=== PATIENT | female | born 1935 | race Caucasian/White ===

== ENCOUNTER 2016-12-27 18:42 | Emergency (ER) | payer MEDICAID, OTHER ==
[~2016-12-27] VITALS: Ht 152.4 cm; Wt 50.0 kg
[~2016-12-27 18:42] MED LIST: ATEN-51 PO; ATEN100T PO; ENAL20TA PO; MECL25TA2 PO; NIFE30TA43 PO; ONDA4TAB35 PO; TRAM50TA2 PO
[2016-12-27 19:38] VITALS: Ht 152.4 cm; Wt 50.0 kg
[2016-12-27] MEDS ORDERED: NICARDipine HCL 30 MG CAPSULE PO ONE (22:00)
--- NOTE | 2016-12-27 22:23 | RADRPT ---
PROCEDURE: XR Chest. CLINICAL INDICATION: Chest pain. TECHNIQUE: Single frontal view. COMPARISON: None. FINDINGS: The lungs are clear. The heart size is normal. There is calcification in the aorta consistent with atherosclerosis. There is no pleural effusion. There is no pneumothorax. IMPRESSION: 1. Atherosclerosis. 2. Otherwise normal chest x-ray. RPTAT: QQ .Malcolm Hernández MD, MD Date Time Electronically viewed and signed by .Malcolm Hernández MD, on 12/27/2016 22:22 .R/
--- NOTE | 2016-12-27 22:44 | RADRPT ---
PROCEDURE: CT Brain without contrast. CLINICAL INDICATION: Headache. TECHNIQUE: A CT of the brain without contrast was performed utilizing axial sections from the skul l base through the vertex. The patient was scanned without intravenous contrast enhancement. Sagitta l and coronal reformatted images were obtained using the data from the axial images. Total exam DLP is 720.23 mGy-cm. CTDIvol is 43.58 mGy. One or more of the following dose reduction techniques we re used: Automated exposure control, adjustment of the mA and/or kV according to patient size, use o f iterative reconstruction technique. COMPARISON: None available FINDINGS: There is normal ochoa-white matter differentiation. There is mild enlargement of the ventricles and subarachnoid spaces consistent with atrophy. Vascul ar calcifications are present consistent with atherosclerosis. There is no intracranial hemorrhage or space-occupying lesion. There is no skull fracture or lytic lesion. IMPRESSION: 1. Normal noncontrast CT scan of the brain. 2. No intracranial hemorrhage. 3. Mild atherosclerosis and atrophy. 4. No change from 06/04/2015. RPTAT: QQ .Malcolm Hernández MD, MD Date Time Electronically viewed and signed by .Malcolm Hernández MD, on 12/27/2016 22:43 .R/
[2016-12-27 23:01] LABS: BASOPHILS % 0.6 % (0.0-2.0); EOSINOPHILS # 0.1 10^3/ul (0.0-0.5); EOSINOPHILS % 1.2 % (0.0-7.0); HEMATOCRIT 39.3 % (37.0-47.0); HEMOGLOBIN 12.9 g/dl (12.0-16.0); LYMPHOCYTES # 3.3 10^3/ul (0.8-2.9); LYMPHOCYTES % 48.1 % (15.0-51.0); MEAN CORPUSCULAR HEMOGLOBIN 30.1 pg (29.0-33.0); MEAN CORPUSCULAR HGB CONC 32.8 g/dl (32.0-37.0); MEAN CORPUSCULAR VOLUME 91.8 fl (82.0-101.0); MEAN PLATELET VOLUME 10.3 fl (7.4-10.4); MONOCYTE # 0.5 10^3/ul (0.3-0.9); MONOCYTES % 7.8 % (0.0-11.0); NEUTROPHILS % 42.2 % (39.0-77.0); PLATELET COUNT 220 10^3/UL (140-415); RED BLOOD COUNT 4.28 10^6/ul (4.20-5.40); RED CELL DISTRIBUTION WIDTH 13.6 % (11.5-14.5); WHITE BLOOD COUNT 6.8 10^3/ul (4.8-10.8)
[2016-12-27 23:18] LABS: ANION GAP 21 (8-16); BLOOD UREA NITROGEN 11 mg/dl (7-20); CALCIUM 9.2 mg/dl (8.4-10.2); CARBON DIOXIDE 26 mmol/L (21-31); CHLORIDE 97 mmol/L (97-110); CREATININE 0.55 mg/dl (0.44-1.00); GLUCOSE 93 mg/dl (70-220); SODIUM 140 mmol/L (135-144)
[2016-12-27 23:34] LABS: TROPONIN-I < 0.012 ng/ml (0.00-0.12)
[2016-12-27 23:55] LABS: ADD UMIC YES; UR ASCORBIC ACID NEGATIVE (NEGATIVE); UR BILIRUBIN (Dip) NEGATIVE (NEGATIVE); UR BLOOD (Dip) 1+ mg/dL (NEGATIVE); UR CLARITY CLEAR (CLEAR); UR COLOR STRAW (YELLOW); UR GLUCOSE (Dip) NEGATIVE (NEGATIVE); UR KETONES (Dip) NEGATIVE (NEGATIVE); UR LEUKOCYTE ESTERASE (Dip) TRACE Leu/ul (NEGATIVE); UR NITRITE (Dip) NEGATIVE (NEGATIVE); UR RBC 1 /HPF (0-5); UR SPECIFIC GRAVITY (Dip) 1.004 (1.003-1.030); UR TOTAL PROTEIN (Dip) NEGATIVE (NEGATIVE); UR UROBILINOGEN (Dip) NEGATIVE (NEGATIVE)
[2016-12-28 00:06] VITALS: BP 116/69; PULSE 72; RESP 14; TEMP 98.7
--- NOTE | 2016-12-28 00:09 | ERD ---
ER Documentation Chief Complaint Date/Time DATE: 12/28/16 TIME: 00:06 Chief Complaint HTN, HEADACHE, CP X 1 MONTH HPI 81-year-old Indonesian-speaking female. A family law mediator was used. The patient is a somewhat limited historian however she describes approximately 1 month ago having chest pain. She did not seek care. This was transient substernal and occasionally left-sided. This was nonexertional. She has not had pain since. She also noted that her blood pressure is been elevated today with a mild headache that is frontal, gradual onset and throbbing. She states compliance with her medication regimen. She denies any fevers or chills, no recent chest pain or exertional symptoms, no pleuritic pain. No slurred speech or motor weakness. ROS All systems reviewed and are negative except as per history of present illness. Medications Home Meds Active Scripts Atenolol* (Atenolol*) 100 Mg Tablet, 100 MG PO DAILY, #30 TAB One quarter tablet every 12 hours Prov:OLEG RODRIGUEZ DO 06/04/15 Nifedipine* (Adalat CC*) 30 Mg Tablet.sa, 30 MG PO DAILY, #30 TAB.SA Prov:OLEG RODRIGUEZ DO 06/04/15 Enalapril Maleate* (Enalapril Maleate*) 20 Mg Tablet, 20 MG PO DAILY, #30 TAB Prov:OLEG RODRIGUEZ. DO 06/04/15 Tramadol HCl (Tramadol HCl) 50 Mg Tablet, 50 MG PO Q4 Y for PAIN, #20 TAB Prov:OLEG RODRIGUEZ DO 06/04/15 Ondansetron Hcl* (Zofran* ODT) 4 mg -ODT Tab.disper, 4 MG PO Q6 Y for NAUSEA AND /OR VOMITING, #10 TAB Prov:OLEG RODRIGUEZ DO 06/04/15 Meclizine Hcl* (Antivert*) 25 Mg Tablet, 25 MG PO Q6H Y for dizzy, #20 TAB Prov:OLEG RODRIGUEZ DO 06/04/15 Reported Medications Atenolol* (Atenolol*) 25 Mg Tablet, 25 MG PO DAILY, #30 TAB 06/04/15 Enalapril Maleate* (Enalapril Maleate*) 20 Mg Tablet, 20 MG PO DAILY, TAB 06/04/15 Nifedipine* (Adalat CC*) 30 Mg Tablet.sa, 30 MG PO DAILY, #30 TAB.SA 06/04/15 Allergies Allergies: Coded Allergies: No Known Allergy (Unverified , 06/03/15) PMhx/Soc History of Surgery: Yes (ovarian cyst removal in [facility] in 2014) Anesthesia Reaction: No Hx Neurological Disorder: No Hx Respiratory Disorders: No Hx Cardiac Disorders: Yes (HTN) Hx Psychiatric Problems: No Hx Miscellaneous Medical Probl: No Hx Alcohol Use: No Hx Substance Use: No Hx Tobacco Use: No Smoking Status: Never smoker FmHx Family History: No diabetes Physical Exam Vitals Vital Signs Date Time Temp Pulse Resp B/P Pulse Ox O2 Delivery O2 Flow Rate FiO2 12/27/16 21:59 70 14 195/96 100 Room Air 12/27/16 19:38 99.1 72 20 220/101 99 Physical Exam General: Well developed, well nourished, no acute distress Head: Normocephalic, atraumatic. Eyes: Pupils equally reactive, EOM intact ENT: Moist mucous membranes Neck: Supple, no lymphadenopathy Respiratory: Lungs clear bilaterally, no distress Cardiovascular: RRR, no murmurs, rubs, or gallops Abdominal: Soft, non-tender, non-distended, no peritoneal signs : Deferred MSK: No edema, no unilateral swelling, 5/5 strength Neurologic: Alert and oriented, moving all extremities, normal speech, no focal weakness, no cerebellar signs Skin: No rash Psych: Normal mood Result Diagram: 12/27/16222012/27/16 2221 Results 24 hrs Laboratory Tests Test 12/27/16 21:50 12/27/16 22:21 Urine Color STRAW Urine Clarity CLEAR Urine pH 6.0 Urine Specific [place] 1.004 Urine Ketones NEGATIVEmg/dL Urine Nitrite NEGATIVEmg/dL Urine Bilirubin NEGATIVEmg/dL Urine Urobilinogen NEGATIVEmg/dL Urine Leukocyte Esterase TRACELeu/ul Urine Microscopic RBC 1/HPF Urine Microscopic WBC 2/HPF Urine Hemoglobin 1+mg/dL Urine Glucose NEGATIVEmg/dL Urine Total Protein NEGATIVEmg/dl White Blood Count 6.810^3/ul Red Blood Count 4.2810^6/ul Hemoglobin 12.9g/dl Hematocrit 39.3% Mean Corpuscular Volume 91.8fl Mean Corpuscular Hemoglobin 30.1pg Mean Corpuscular Hemoglobin Concent 32.8g/dl Red Cell Distribution Width 13.6% Platelet Count 59094^3/UL Mean Platelet Volume 10.3fl Neutrophils % 42.2% Lymphocytes % 48.1% Monocytes % 7.8% Eosinophils % 1.2% Basophils % 0.6% Nucleated Red Blood Cells % 0.0/100WBC Neutrophils # (Manual) 310^3/ul Lymphocytes # 3.310^3/ul Monocytes # 0.510^3/ul Eosinophils # 0.110^3/ul Basophils # 0.010^3/ul Nucleated Red Blood Cells # 0.010^3/ul Sodium Level 140mmol/L Potassium Level 4.0mmol/L Chloride Level 97mmol/L Carbon Dioxide Level 26mmol/L Anion Gap 21 Blood Urea Nitrogen 11mg/dl Creatinine 0.55mg/dl Glucose Level 93mg/dl Calcium Level 9.2mg/dl Troponin I < 0.012ng/ml Current Medications Medications (Trade) Dose Ordered Sig/Aranza Route PRN Reason Start Time Stop Time Status Last Admin Dose Admin Nicardipine HCl (Cardene) 30 mg ONCE ONCE PO 12/27/16 22:00 12/27/16 22:01 DC 12/27/16 22:31 Procedures/MDM EKG, MONITORS, & DIAGNOSTIC IMAGING: EKG: I reviewed and interpreted a 12-lead EKG. Rhythm: Normal sinus rhythm Ectopy: None Intervals: No abnormalities ST segments: No elevations or depressions T waves: No contiguous inversions Chest x-ray: I reviewed and interpreted a 1 view of the chest Mediastinum: No enlargement Cardiac silhouette: No cardiomegaly Airspace: Clear lung stark bilaterally without evidence of pneumothorax Bones: No evidence of fracture CT brain: No evidence of acute intracranial process per radiology read LAB INTERPRETATION: Negative troponin MEDICAL DECISION MAKING: The patient presents with elevated blood pressure and headache. 1 month ago she had chest pain but none since. Her chest pain was atypical nonexertional and only occurred one time. She since has not had any exertional chest pain or recurrence of this episode. This is clearly stated per patient and family member. Today she presents with elevated blood pressure and headache likely consistent with hypertensive urgency. She has a nonfocal neurologic exam but given her age I believe she would benefit from CT of the brain. The patient will benefit from p.o. Cardene. IV intervention is not indicated given concern for rapidly lowering her blood pressure without evidence of endorgan dysfunction. ER COURSE: The patient's blood pressure down trended appropriately. The patient is resting comfortably and asymptomatic. I discussed keeping a blood pressure log and following up with primary care physician as medications may need to be adjusted. The patient should follow-up with her primary care physician for her chest pain. Since she has not had chest pain for greater than 1 month I do not believe she requires inpatient hospitalization to rule out ACS. I kept the patient and/or family informed of laboratory and diagnostic imaging results throughout the emergency room course. DISPOSITION PLAN: We discussed follow up with the patient's primary care doctor within 24 to 48 hours as needed. We also discussed return to the emergency room for worsening symptoms or worsening condition. Outpatient referral: [None required] Discharge Medications: None required Departure Diagnosis: Primary Impression: Hypertensive urgency Condition: Stable Patient Instructions: Chest Pain, Noncardiac , Hypertension, Established, Out Of Control [facility]: [facility] Usted se walsh hecho un examen mdico de control que le indica que no est en justin condicin que requiera tratamiento urgente en el Departamento de Emergencia. Un estudio ms profundo y el tratamiento de perez condicin pueden esperar sin ningn riesgo hasta que usted sea atendida/o en el consultorio de perez mdico o justin cl roseline. Es responsabilidad suya arreglar justin chacorta para el seguimiento del divina. MANEJO DE CONDICIONES NO URGENTES EN EL FUTURO 1) Si usted tiene un mdico de atencin primaria: ted debera llamar a perez mdico de atencin primaria antes de venir al departamento de emergencia. Despus de las horas de consultorio, perez doctor o perez asociado/a est disponible por telfono. El mdico o enfermero de edita en el servicio telefnico puede asesorarle por kayley medio para atender el problema, o divina contrario se puede programar justin chacorta. 2) Si usted no tiene un mdico de atencin primaria: Llame al mdico o clnica de referencia que aparece abajo kayli las horas de consultorio para hacer justin chacorta para que le vean. CLINICAS: [facility] [phone] [facility] [phone] [address] [facility] [phone] [place] [phone] [place] [address] [phone] [facility] [phone] [address] [facility]. [facility] () Usted se walsh hecho un examen mdico de control que le indica que no est en justin condicin que requiera tratamiento urgente en el Departamento de Emergencia. Un estudio ms profundo y el tratamiento de perez condicin pueden esperar sin ningn riesgo hasta que usted sea atendida/o en el consultorio de perez mdico o justin cl roseline. Es responsabilidad suya arreglar justin chacorta para el seguimiento del divina. MANEJO DE CONDICIONES NO URGENTES EN EL FUTURO 1) Si usted tiene un mdico de atencin primaria: Usted debera llamar a perez mdico de atencin primaria antes de venir al departamento de emergencia. Despus de las horas de consultorio, perez doctor o perez asociado/a est disponible por telfono. El mdico o enfermero de edita en el servicio telefnico puede asesorarle por kayley medio para atender el problema, o divina contrario se puede programar justin chacorta. 2) Si usted no tiene un mdico de atencin primaria: Llame al mdico o condado institucions de referencia que aparece abajo kayli las horas de consultorio para hacer justin chacorta para que le vean. SI USTED NO PUEDE PAGAR PARA ROWAN UN MEDICO puede ir a: [facility] [id number] [facility] [place] [address] [facility] [address] [place] [address] [facility] [address] [place] [address] PARA WILFREDO [facility] [address] [place], [place] [id number] Additional Instructions: Llame al doctor nombrado abajo (Referral Sources) MAANA y regina justin CHACORTA PARA DENTRO DE JUSTIN SEMANA. Dgale a la secretaria que nosotros le instruimos hacer esta chacorta.Avise o llame si perez condicin se empeora antes de la chacorta. CORTES GALVEZ MD Dec 28, 2016 00:07
== END 2016-12-28 00:19 | disposition home or self-care (01) ==
LOC: E/R 18:42
DX: I16.0 Hypertensive urgency (principal); R51 Headache; R40.2142 Coma scale, eyes open, spontaneous, at arrival to emergency department; R40.2252 Coma scale, best verbal response, oriented, at arrival to emergency department; R40.2362 Coma scale, best motor response, obeys commands, at arrival to emergency department
CPT/HCPCS: 36415; 70450; 71010; 80048; 81001; 84484; 85025; 93005; Z7502; Z7610